=== PATIENT | female | born 1950 ===

== ENCOUNTER 2022-03-14 06:03 | Day surgery (SDC) | payer OTHER ==
[~2022-03-14 06:03] MED LIST: ALPHAGAN P5 M2 OP; COZAAR100 MG PO; JANUMET XR 1001 EACH PO; LANTUS SOL100 UNIT/1; LIPITOR20 MG PO; TIMOPTIC5 ML
== END 2022-03-14 11:05 | disposition home or self-care (01) ==
LOC: CIR.AMB 06:03
PROVIDERS: ATTEND Surgery Surgery of the Hand
DX: M19.042 Primary osteoarthritis, left hand (principal); Z20.822 Contact with and (suspected) exposure to COVID-19; I10 Essential (primary) hypertension; Z86.16 Personal history of COVID-19; Z87.442 Personal history of urinary calculi